=== PATIENT | female | born 1975 | race African-American/Black ===

== ENCOUNTER 2016-06-13 02:26 | Emergency (ER) | payer OTHER ==
[~2016-06-13 02:26] MED LIST: ALBUTEROL17 G1 INH; ELIMITE60 GM TOP; FLEXERIL PO; FLEXERIL10 MG PO; HYDROXYZINE HCL25 M1 DOB; IBUPROFEN800 MG PO; KEFLEX PO; KEFLEX250 M1 PO; ORUDIS75 M1 PO; PENICILLIN V P500 MG PO; PREDNISONE10 MG/DOSE PO; VICODIN PO; Z-PACK PO
== END 2016-06-13 02:35 | disposition home or self-care (01) ==
LOC: CED 02:26
DX: S01.81XA Laceration without foreign body of other part of head, initial encounter (principal); Z79.01 Long term (current) use of anticoagulants; F17.200 Nicotine dependence, unspecified, uncomplicated; Z79.899 Other long term (current) drug therapy; W22.8XXA Striking against or struck by other objects, initial encounter
CPT/HCPCS: 12013; 99283